=== PATIENT | male | born 1965 | race Two or more races ===

== ENCOUNTER 2020-07-21 13:34 | Outpatient (CLI) | payer MEDICAID ==
--- NOTE | 2020-07-22 19:59 | Consultation ---
DATE OF CONSULTATION: 07/21/2020 CHIEF COMPLAINT: Referral for screening colonoscopy. PAST MEDICAL HISTORY: 1. Hypothyroidism. 2. Psychiatric disorder. 3. Aneurysm. PAST SURGICAL HISTORY: None. MEDICATIONS: See medication reconciliation list. FAMILY HISTORY: No family history of GI malignancies. SOCIAL HISTORY: The patient used to drink alcohol, but quit. Also used to smoke. He has quit. ALLERGIES: No drug allergies. REVIEW OF SYSTEMS: Positive for hemorrhoids. PHYSICAL EXAMINATION: VITAL SIGNS: Temperature 97.2, blood pressure 132/88, pulse 100, respirations 20. HEENT: Normocephalic, atraumatic. Sclerae are anicteric. NECK: Supple. No evidence of obvious lymphadenopathy. CARDIOVASCULAR: Regular rhythm. Plus S1-S2. LUNGS: Clear to auscultation bilaterally. ABDOMEN: Positive bowel sounds. Soft and nontender. No rebound. No guarding. No peritoneal sign. EXTREMITIES: No cyanosis, no clubbing, no edema. ASSESSMENT AND PLAN: The patient is a 54-year-old male, needs screening colonoscopy. We will plan to schedule as soon as authorization is obtained. The patient was informed about the risks and benefits of procedure. The prep was explained to him. Kin Cline M.D. DR: JERE JOB#: [id number] CC:
== END 2020-07-21 15:34 | disposition home or self-care (01) ==
LOC: PAN 13:34
DX: K64.9 Unspecified hemorrhoids (principal); E03.9 Hypothyroidism, unspecified; Z87.891 Personal history of nicotine dependence
CPT/HCPCS: 99203